=== PATIENT | male | born 1995 | race Caucasian/White ===

== ENCOUNTER 2025-03-05 23:23 | Emergency (ER) | payer BC, SELFPAY ==
[2025-03-05 23:23] VITALS: BP 155/88; PULSE 75; RESP 16; TEMP 36.6; O2SAT 97
--- OUTSIDE RECORDS SUMMARY | 2025-03-05 23:30 | XMS_ITS | Clinical Summary ---
Author Organization [facility] Address [address] [place] [address] Care Team Providers Care Wallpaper Cleaner Name Role Phone Shilpi Cool MD Unavailable [phone] Shilpi Cool MD Primary Care Provider [phone] Source Comments [facility],non-owned Affiliates and Associated Physician Practices is amultiple site organization consisting of ambulatory clinics and hospital sitesin [place], [place], [place] and [place]. This disclosure is being madepursuant to the Care Everywhere program and may not contain all information available regarding this patient. Last updated 18.[facility] [employer] Allergies No known active allergies Medications * Be aware that medications may not be up to date on this document. Alwaysverify current medications with the patient. 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 Immunizations Immunization Administration Dates Next Due DT (AGE 7-ADULT) 01/14/2004 DTaP VACCINE IM (6wk-6yrs) 07/10/1998,,1994,1993,1994 HEP A PEDS 2 DOSE 04/21/2007,05/20/2006 HEP B VACCINE, PED/ADOL 1994,1994, HIB BOOSTER 01/13/1995, 4,1994,1993 Human Papilloma Virus Cody valent Vaccine 12/04/2012 MENINGOCOCAL MENINGITIS 04/21/2007 MMR 07/10/1998,01/13/1995 POLIO OPV 07/10/1998, 4,1994,1993 TDAP (7yrs+) 05/20/2006 Family History Medical History Relation Name Comments Arthritis Maternal Grandfather Hypertension Maternal Grandfather Thyroid Disease Maternal Grandfather Allergies Maternal Grandmother Arthritis Maternal Grandmother Hypertension Maternal Grandmother Allergies Mother Arthritis Mother Hepatitis Mother Hypertension Mother Other Paternal Grandfather Hearing Loss Relation Name Status Comments Maternal Grandfather Maternal Grandmother Mother Paternal Grandfather Social History Tobacco Use Types Packs/Day Years Used Date Smoking Tobacco: Never Alcohol Use Standard Drinks/Week Comments Not Asked 0 (1 standard drink = 0.6 oz pur e alcohol) Sex and Gender Information Value Date Recorded Sex Assigned at Not on file Legal Sex Male 5:41 AM HYDROLOGIC MODELER Gender Identity Not on file Sexual Orientation Not on file Last Filed Vital Signs Vital Sign Reading Time Taken Comments Blood Pressure 122/60 12/04/2012 2:35 PM HYDROLOGIC MODELER Pulse 60 12/04/2012 2:35 PM HYDROLOGIC MODELER Temperature 37.1 C (98.8 F) 12/04/2012 2:35 PM HYDROLOGIC MODELER Respiratory Rate - - Oxygen Saturation - - Inhaled Oxygen Concentration - - Weight 81.8 kg (180 lb 6.4 oz) 12/04/2012 2:35 P M HYDROLOGIC MODELER Height 186.3 cm (6' 1.33 ) 12/04/2012 2:35 PM CS T Body Mass Index 23.59 12/04/2012 2:35 PM HYDROLOGIC MODELER Plan of Treatment Health Maintenance Due Date Last Done Comments HIV SCREENING 2009 HEPATITIS C SCREENING 12/28/2011 HPV VACCINE (2 - Male 3-dose series) 2013 12/04/2012 DTAP/TDAP/TD VACCINES (7 - Td or Tdap) 05/20/2016 05/20/2006, 01/14/2004, 07/10/1998, Additional history exists COVID-19 VACCINE (1 - season) 2024 DEPRESSION SCREENING 10/27/2024 INFLUENZA VACCINE (Season Ended) 2025 ZOSTER VACCINE (1 of 2) 01/02/2044 HEPATITIS B VACCINE Completed 1994, 1994, 1994 HIB VACCINE Completed 01/13/1995, 11/1993, 1994, Additional history exists MENINGOCOCCAL GROUPS A/C/Y/W VACCINE Aged Out 04/21/2007 No longer eligible based on patient's age to complete this topic MENINGOCOCCAL (Group B) VACCINE SHARED DECISION-MAKING Aged Out No longer eligible based on patient's age to complete this topic PNEUMOCOCCAL VACCINE Aged Out No long er eligible based on patient's age to complete this topic Insurance [place]ID - [place] [facility] [place] [id number] Care Teams Wallpaper Cleaner Relationship Specialty Start Date End Date Shilpi Cool MD PCP - Pediatrics 11/08/09 Shilpi Cool MD PCP - General 07/22/11
--- NOTE | 2025-03-05 23:38 | ED_ITS ---
HPI - Dental/Oral General Chief complaint: Dental/Oral Stated complaint: tooth pain Time Seen by Provider: 03/05/25 23:35 Source: patient and family Mode of arrival: ambulatory Limitations: no limitations History of Present Illness HPI Narrative: this is a 30-year-old male with a dental pain right lower molar area causing able to see his dentist at this time with no fever no nausea vomiting no shortness of breath pain rates his pain about an 8/10 right lower molar area with a submandibular gland swelling on the right. MD Complaint: tooth pain Teeth map: 2 1. toothache with surrounding gum inflammation Onset (ago): day(s) Duration: constant Severity: moderate Severity scale (1-10): 8 Relieving factors: nothing Exacerbating factors: chewing Context: history of dental caries and poor dental care Associated symptoms: gum swelling Related Data Allergies Allergy/AdvReac Type Severity Reaction Status Date / Time No Known Allergies Allergy Mild Verified 03/05/25 23:31 Review of Systems 2 Review of Systems: All systems reviewed & are unremarkable except as noted in HPI and below PMFSH Past Medical History Medical History Patient denies medical problems Exam 2 Const: General: healthy appearing Nutritional Appearance: well nourished Orientation/consciousness: patient oriented x3 Limitations: no limitations HENMT: Head: normal to inspection Eyes: Conjunctivae: conjunctivae normal Neck: Neck: normal visual inspection and lymphadenopathy Chest: Chest palpation & inspection: normal inspection of the chest Resp: Effort & Inspection: normal respiratory effort Auscultation: clear to auscultation bilaterally Cardio: Rate: regular rate Rhythm: regular rhythm GI: GI Palp: Yes Soft to palpation Auscultation: normal bowel sounds Course Course Emergency Course: patient received 60mg IM Toradol and a dose of p.o. Augmentin, advised patient to follow with his dentist and take medication as prescribed. Critical Care Time Critical Care Time Critical Care Time: No Discharge Plan Discharge Clinical Impression: Dental abscess, Toothache Patient Disposition: Home Condition: Stable Instructions: Antibiotic Form, Dental Abscess (ED), Toothache (ED) Additional Instructions: Advised to take medication as prescribed and to follow with Primary/dentist for further evaluation and treatment. Patient Language: Thai Prescriptions: New tramadol 50 mg tablet 50 mg PO Q6H PRN (Reason: pain) Qty: 20 0RF amoxicillin-pot clavulanate [Augmentin] 500-125 mg tablet 1 tablet PO TID Qty: 30 0RF Follow-up/Referrals: Soledad,Maria T Hightower APRN [Primary Care Provider] - Stand Alone Forms: Work/School Release IP Time of Disposition: 23:42
[2025-03-05] MEDS: AMOXICILLIN/CLAVULANATE K 875-125 MG TAB 1 TABLET PO (23:46)
[2025-03-05] MEDS: KETOROLAC (*BKC) 60 MG/2 ML VIAL IM (23:46)
== END 2025-03-06 00:27 | disposition home or self-care (01) ==
LOC: CHSED 23:46
PROVIDERS: Emergency Provider Emergency Medicine; PCP Nurse Practitioner Family
DX: K04.7 Periapical abscess without sinus (principal)
CPT/HCPCS: 96372; 99283; A9270; J1885

== ENCOUNTER 2025-06-01 20:28 | Emergency (ER) | payer BC, SELFPAY ==
[2025-06-01 20:28] VITALS: BP 146/85; PULSE 55; RESP 16; TEMP 36.5; O2SAT 98
--- NOTE | 2025-06-01 20:34 | ED_ITS ---
HPI - Headache General Chief Complaint: Headache Stated Complaint: migraine Time Seen by Provider: 06/01/25 20:34 Source: patient Mode of arrival: ambulatory Limitations: no limitations History of Present Illness HPI Narrative: 30-year-old male with a history of migraines presents to the ED with a 3 day history of -- left suboccipital headache which radiates to bilateral temples. This is similar to his usual migraines. -- Patient has photophobia. No fever. No focal neuro deficits. No nausea /vomiting. MD elicited complaint: headache Onset (ago): day(s) ( Three days) Onset description: gradually Location: left, occipital and down into neck Severity: moderate Quality & Timing: throbbing Exacerbating factors: none Relieving factors: nothing Context: occurred at rest Associated symptoms: none and photophobia Treatments prior to arrival: acetaminophen Related Data Home Medications ?Medication ?Instructions ?Recorded ?Confirmed ?Last Taken ?Type No Home Medications 06/01/25 06/01/25 Unknown History Allergies Allergy/AdvReac Type Severity Reaction Status Date / Time No Known Allergies Allergy Mild Verified 06/01/25 20:43 Review of Systems Review of Systems: All systems reviewed & are unremarkable except as noted in HPI and below Constitutional: Constitutional: Reports as per HPI and Reports no additional constitutional complaints Eyes: Eyes: Reports as per HPI and Reports no additional eye complaints ENT: Reports system reviewed and no additional complaints, except as documented and Reports as per HPI Cardiovascular: Cardiovascular: Reports as per HPI and Reports no additional cardiovascular complaints Respiratory: Respiratory: Reports as per HPI and Reports no additional respiratory complaints Gastrointestinal: Gastrointestinal: Reports as per HPI and Reports no additional gastrointestinal complaints Genitourinary: Genitourinary: Reports no additional male genitourinary complaints and Reports as per HPI Musculoskeletal: Musculoskeletal: Reports no additional musculoskeletal complaints and Reports as per HPI Integumentary/Breasts: Skin/Breast: Reports system reviewed and no additional complaints, except as docu and Reports as per HPI Neurologic: Reports system reviewed and no additional complaints, except as documented and Reports headache(s) Psychiatric: Psychiatric: Reports no additional psychiatric complaints and Reports as per HPI Endocrine: Endocrine: Reports no additional endocrine complaints and Reports as per HPI Hematologic/Lymphatic: Hematologic/Lymphatic: Reports no additional hematologic/lymphatic complaints and Reports as per HPI Allergic/Immunologic: Allergic/Immunologic: Reports no additional allergic/immunologic complaints and Reports as per HPI PMF Past Medical History Medical History Migraine Patient denies medical problems Exam Narrative: vitals are stable. Const: General: no acute distress Orientation/consciousness: patient oriented x3 Limitations: no limitations HENMT: Head: normal to inspection Ears: external ears normal Face/Nose/Sinus: Normal external nose present Face and sinus: normal facial exam Mouth: Yes Normal oral and palatal mucosa present Throat: posterior oropharynx normal Eyes: Conjunctivae: conjunctivae normal Pupils: Equal, round and reactive pupils present EOM: EOMs intact bilaterally Direct Ophthalmoscopy: no photophobia Neck: Neck: normal visual inspection, no lymphadenopathy and no meningeal signs Chest: Chest palpation & inspection: normal inspection of the chest Resp: Effort & Inspection: normal respiratory effort Auscultation: clear to auscultation bilaterally Cardio: Rate: regular rate Rhythm: regular rhythm GI: GI Palp: Yes Soft to palpation Auscultation: normal bowel sounds Other: Tenderness/ rigidity / rebound. : General: Yes no CVA tenderness Back/Spine/Pelvis: Back: no CVA tenderness Skin: General skin exam: normal color Rashes: no rashes Wounds: no wounds Neuro: General: patient oriented x3, moves all extremities, no meningeal signs, no focal motor deficits and CN's II-XI intact bilaterally Cranial nerves: Yes Nystagmus not present Speech: normal speech Gait exam (Neuro): Normal gait present Extrem: General: normal to inspection and no clubbing, cyanosis or edema Psych: Mental Status: mental status grossly normal Affect: normal affect Attitude: cooperative Course Course Emergency Course: Migraine headache-- Patient presents with unilateral headache with photophobia. No vomiting. No focal neuro deficit. Will try sumatriptan. no relief sumatriptan. It made him nauseous. Gave patient 30 of Toradol 10 of Compazine. Headache has decreased to 5/10. He is no longer nauseous. Vital Signs Vital signs: Vital Signs Temperature 36.5 C 06/01/25 20:28 Pulse Rate 55 L 06/01/25 20:28 Respiratory Rate 16 06/01/25 20:28 Blood Pressure 146/85 H 06/01/25 20:28 Pulse Oximetry 98 06/01/25 20:28 Oxygen Delivery Room Air 06/01/25 20:28 Temperature 36.5 C 06/01/25 20:28 Pulse Rate 55 L 06/01/25 20:28 Respiratory Rate 16 06/01/25 20:28 Blood Pressure 146/85 H 06/01/25 20:28 Pulse Oximetry 98 06/01/25 20:28 Oxygen Delivery Room Air 06/01/25 20:28 MDM - Headache MDM Narrative Medical decision making narrative: Migraine Differential Diagnosis Differential diagnosis: Likely tension headache Discharge Plan Discharge Clinical Impression: Migraine Patient Disposition: Home Condition: Stable Instructions: Antibiotic Form, Migraine Headache (ED) Patient Language: [place] Citizen Prescriptions: No Action No Home Medications Follow-up/Referrals: UNKNOWN,DOCTOR [Non-Staff] - Time of Disposition: 22:01
--- OUTSIDE RECORDS SUMMARY | 2025-06-01 20:34 | XMS_ITS | Clinical Summary ---
Author Organization [facility] Address [address] [place] [address] Care Team Providers Care Cocktail Server Name Role Phone Shilpi Cool MD Unavailable [phone] Shilpi Cool MD Primary Care Provider Source Comments [facility],non-owned Affiliates and Associated Physician Practices is amultiple site organization consisting of ambulatory clinics and hospital sitesin [place], [place], [place] and [place]. This disclosure is being madepursuant to the Care Everywhere program and may not contain all information available regarding this patient. Last updated 18.[facility] [employer] Allergies No known active allergies Medications * [...] on file Legal Sex Male 5:41 AM LEVELMAN Gender Identity Not on file Sexual Orientation Not on file Last Filed Vital Signs Vital Sign Reading Time Taken Comments Blood Pressure 122/60 12/04/2012 2:35 PM LEVELMAN Pulse 60 12/04/2012 2:35 PM LEVELMAN Temperature 37.1 C (98.8 F) 12/04/2012 2:35 PM LEVELMAN Respiratory Rate - - Oxygen Saturation - - Inhaled Oxygen Concentration - - Weight 81.8 kg (180 lb 6.4 oz) 12/04/2012 2:35 P M LEVELMAN Height 186.3 cm (6' 1.33) 12/04/2012 2:35 PM CS T Body Mass Index 23.59 12/04/2012 2:35 PM LEVELMAN Plan of Treatment Health Maintenance Due Date Last Done Comments HIV SCREENING 2009 HEPATITIS C SCREENING 12/28/2011 HPV VACCINE (2 - Male 3-dose series) 2013 12/04/2012 DTAP/TDAP/TD VACCINES (7 - Td or Tdap) 05/20/2016 05/20/2006, 01/14/2004, 07/10/1998, Additional history exists COVID-19 VACCINE (1 - season) 2024 DEPRESSION SCREENING 10/27/2024 INFLUENZA VACCINE (#1) 2025 ZOSTER VACCINE (1 of 2) 01/02/2044 [...] complete this topic Insurance MEDICAID - [place] [facility] [place] [address] [id number] Care Teams Cocktail Server Relationship Specialty Start Date End Date Shilpi Cool MD PCP - Pediatrics 11/08/09 Shilpi Cool MD PCP - General 07/22/11
--- OUTSIDE RECORDS SUMMARY | 2025-06-01 21:09 | XMS_ITS | Encounter Summary ---
Author Organization [facility] Address [address] [place] [address] Care Team Providers Care Audio Visual Technician Name Role Phone None, Provider Primary Care Provider Faye Norris [facility] Primary Care Provider [phone] Encounter Details Date Type Department Care Team (Late st Contact Info) Description 01/10/2018 Abstract [facility] CONVERSION [address] [place] [address] , Generic Conversion, Social History Tobacco Use Types Packs/Day Years Used Date Smoking Tobacco: Never Assessed Sex and Gender Information Value Date Recorded Sex Assigned at Male 12/06/2024 6:01 PM COMMUNITY RECREATION PROGRAMMER Legal Sex Male 7:32 PM CDT Gender Identity Not on file Sexual Orientation Not on file documented as of this encounter Plan of Treatment Not on file documented as of this encounter Visit Diagnoses Not on filedocumented in this encounter Additional Health Concerns Infection Onset Date Last Indicated Resolved Time MRSA 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
--- OUTSIDE RECORDS SUMMARY | 2025-06-01 21:09 | XMS_ITS | Clinical Summary ---
Author Organization [facility] Address [address] [place] [address] Care Team Providers Care Beading Sawyer Name Role Phone Faye Slade [facility] Primary Care Provider [phone] Allergies No known active allergies Medications DULoxetine (CYMBALTA) 30 MG capsule Take 3 capsules (90 mg total) by mouth daily. Active prazosin (MINIPRESS) 2 MG capsule Take 1 capsule (2 mg total) by mouth 3 (three) times daily. Active Active Problems No known active problems Immunizations Immunization Administration Dates Next Due Tdap (Boostrix) 06/06/2021 Social History Tobacco Use Types Packs/Day Years Used Date Smoking Tobacco: Never Smokeless Tobacco: Never Alcohol Use Standard Drinks/Week Comments Not Currently 0 (1 standard drink = 0.6 oz pur e alcohol) Sex and Gender Information Value Date Recorded Sex Assigned at Male 12/06/2024 6:01 PM VEGETABLE COOK Legal Sex Male 7:32 PM CDT Gender Identity Not on file Sexual Orientation Not on file Last Filed Vital Signs Vital Sign Reading Time Taken Comments Blood Pressure 151/77 12/06/2024 5:52 PM VEGETABLE COOK Pulse 72 12/06/2024 5:52 PM VEGETABLE COOK Temperature 36.2 C (97.2 F) 12/06/2024 5:52 PM VEGETABLE COOK Respiratory Rate 22 12/06/2024 5:52 PM VEGETABLE COOK Oxygen Saturation 98% 12/06/2024 5:52 PM VEGETABLE COOK Inhaled Oxygen Concentration - - Weight 104.3 kg (230 lb) 12/06/2024 5:52 PM VEGETABLE COOK Height 195.6 cm (6' 5) 12/06/2024 5:52 PM VEGETABLE COOK Body Mass Index 27.27 12/06/2024 5:52 PM VEGETABLE COOK Plan of Treatment Health Maintenance Due Date Last Done Comments Annual Physical 1997 Hepatitis C 01/02/2012 HPV Vaccines (2 - Male 3-dose series) 2013 12/04/2012 COVID-19 Vaccine ( - 2023- season) 2024 DTaP, Tdap and Td Vaccines (8 - Td or Tdap) 06/06/2031 06/06/2021, 05/20/2006, 07/10/1998, Additional history exists Hepatitis B Vaccines Completed 1994, 1994, 1994 Meningococcal Vaccine Aged Out 04/21/2007 No elvis javon eligible based on patient's age to complete this topic Meningococcal B Vaccine Aged Out No l onger eligible based on patient's age to complete this topic Pneumococcal Vaccine: Pediatrics (0 to 5 Years) and At-Risk Patients (6 to 49 Years) Aged Out No longer eligible based on patient's age to complete this topic RSV Immunizations Under 20 Months Aged Out No longer eligible based on patient's age to complete this topic Additional Health Concerns Infection Onset Date Last Indicated MRSA 09/19/2017 09/19/[address] [place] [address] [place] [address] Care Teams Beading Sawyer Relationship Specialty Start Date End Date Faye Slade FNP-BC [address] [place] [address] PCP - General NURSE PRACTITIONER 11/12/20
--- OUTSIDE RECORDS SUMMARY | 2025-06-01 21:09 | XMS_ITS | Encounter Summary ---
Author Organization [facility] Address [facility] [place] [address] Care Team Providers Care Package Checker Name Role Phone None, Provider Primary Care Provider Faye Norris [facility] Primary Care Provider [phone] Encounter Details Date Type Department Care Team (Late st Contact Info) Description 04/03/2019 Abstract [facility] CONVERSION [address] [place] [address] , Generic Conversion, Social History Tobacco Use Types Packs/Day Years Used Date Smoking Tobacco: Never Assessed Sex and Gender Information Value Date Recorded Sex Assigned at Male 12/06/2024 6:01 PM HANDSTITCHING MACHINE COLLAR FELLER Legal Sex Male 7:32 PM CDT Gender Identity Not on file Sexual Orientation Not on file documented as of this encounter Plan of Treatment Not on file documented as of this encounter Visit Diagnoses Not on filedocumented in this encounter Additional Health Concerns Infection Onset Date Last Indicated Resolved Time MRSA 09/19/2017 09/19/2017 documented as of this encounter Care Teams Package Checker Relationship Specialty Start Date End Date None, Provider, PCP - General 08/02/20 11/11/20 Faye Slade FNP-BC [address] [place] [address] PCP - General NURSE PRACTITIONER 11/12/20 documented as of this encounter
--- OUTSIDE RECORDS SUMMARY | 2025-06-01 21:09 | XMS_ITS | Clinical Summary ---
Author Organization [facility] Address [address] [place] [address] Care Team Providers Care Marketing Communications Specialist Name Role Phone Shilpi Cool MD Unavailable [phone] Shilpi Cool MD Primary Care Provider [phone] Source Comments [facility],non-owned Affiliates and Associated Physician Practices is amultiple site organization consisting of ambulatory clinics and hospital sitesin [place], [place], [place] and [place]. This disclosure is being madepursuant to the Care Everywhere program and may not contain all information available regarding this patient. Last updated 18.[facility] [place] Allergies No known active allergies Medications * [...] on file Legal Sex Male 5:41 AM SURG NURSE Gender Identity Not on file Sexual Orientation Not on file Last Filed Vital Signs Vital Sign Reading Time Taken Comments Blood Pressure 122/60 12/04/2012 2:35 PM SURG NURSE Pulse 60 12/04/2012 2:35 PM SURG NURSE Temperature 37.1 C (98.8 F) 12/04/2012 2:35 PM SURG NURSE Respiratory Rate - - Oxygen Saturation - - Inhaled Oxygen Concentration - - Weight 81.8 kg (180 lb 6.4 oz) 12/04/2012 2:35 P M SURG NURSE Height 186.3 cm (6' 1.33) 12/04/2012 2:35 PM CS T Body Mass Index 23.59 12/04/2012 2:35 PM SURG NURSE Plan of Treatment Health Maintenance Due Date [...] complete this topic Insurance MEDICAID - [place] [facility] Address: [address] [place] [address] [employer] [address] [id number] Care Teams Marketing Communications Specialist Relationship Specialty Start Date End Date Shilpi Cool MD PCP - Pediatrics 11/08/09 Shilpi Cool MD PCP - General 07/22/11
[2025-06-01] MEDS: KETOROLAC 30 MG/ML VIAL (*BKC) IM (21:31)
[2025-06-01] MEDS: PROCHLORPERAZINE EDISYLATE 10 MG/2 ML VIAL IM (21:33)
--- NOTE | 2025-06-01 21:37 | PC.NURSE ---
pt called out, stated he was feeling worse after initial subcutaneous injection. +nausea. ERP aware and new orders obtained. Resting on stretcher on his abdomen/right side, reports feeling hot now and no change in his pain. pt medicated per new orders, see MAR. significant other at bedside.
--- NOTE | 2025-06-01 22:05 | PC.NURSE ---
pt checked. reports no acute nausea now and improved pain he rates as 5/10. ERP updated. sig other at pt bedside. RN monitoring.
--- NOTE | 2025-06-01 22:39 | PC.NURSE ---
pt called to nurses station. reports improved pain as he was able to fall asleep and states he is ready to leave. sig other at bedside and vitals obtained.
[2025-06-01 22:40] VITALS: BP 123/70; PULSE 63; RESP 18; O2SAT 98
[2025-06-01 22:44] VITALS: TEMP 36.2
== END 2025-06-01 22:44 | disposition home or self-care (01) ==
PROVIDERS: Emergency Provider Internal Medicine Critical Care Medicine; PCP Nurse Practitioner Family
DX: G43.909 Migraine, unspecified, not intractable, without status migrainosus (principal)
CPT/HCPCS: 96372; 99284; J0780; J1885; J3030

== ENCOUNTER 2025-06-18 18:48 | Emergency (ER) | payer BC, SELFPAY ==
--- NOTE | ~2025-06-18 | CT_ITS ---
EXAMINATION: CT cervical spine wo con DATE: 06/18/2025 19:39 INDICATION: Head injury. Neck pain. TECHNIQUE: Computed tomography (CT) of the cervical spine was performed without intravenous contrast. The dose-length product was 396 mGy-cm. COMPARISON: No prior studies for comparison. FINDINGS: Vertebral body heights are maintained. Craniovertebral junction is normal. Odontoid process is normal. No significant disc narrowing. No evidence for perched facet. Spinous processes are normal. There is mild uncinate degenerative change at C6-7. No significant paraspinal soft tissue abnormality. IMPRESSION: 1. No acute abnormality of the cervical spine. Reviewed, dictated and finalized at location O.
--- NOTE | ~2025-06-18 | XR_ITS ---
XR shoulder LT min 2V 06/18/2025 19:29 INDICATION: Left shoulder pain after fall PROCEDURE: 3 views left shoulder COMPARISON: No prior studies for comparison. FINDINGS: Fracture, dislocation or subluxation is not identified. The soft tissues appear within normal limits. No foreign bodies are identified. IMPRESSION: 1: NO ACUTE BONE OR JOINT ABNORMALITY IDENTIFIED. Reviewed, dictated and finalized at location O.
--- NOTE | ~2025-06-18 | CT_ITS ---
EXAMINATION: CT BRAIN W/O DATE: 06/18/2025 19:39 INDICATION: Head injury TECHNIQUE: Computed tomography (CT) of the head was performed without intravenous contrast. The dose-length product was 681.00 mGy-cm. Automated exposure control and iterative reconstruction technique were employed. COMPARISON: CT dated 05/21/2010 FINDINGS: Normal brain parenchymal volume for age. Normal leary-white differentiation. No acute intracranial hemorrhage, infarction, mass or mass effect. No ventriculomegaly or midline shift. Midline sagittal images demonstrate a normal corpus callosum, craniovertebral junction and sella turcica. Basilar cisterns are patent. Paranasal sinuses and mastoids are pneumatized. No depressed skull fractures. IMPRESSION: 1. No acute intracranial abnormality. Reviewed, dictated and finalized at location O.
[2025-06-18 18:56] VITALS: BP 123/91; PULSE 65; RESP 20; TEMP 36.6; O2SAT 98
--- NOTE | 2025-06-18 19:29 | ED_ITS ---
HPI - General Adult General Chief complaint: Unspecified Stated complaint: head, neck, shoulder pain Time Seen by Provider: 06/18/25 19:09 History of Present Illness HPI narrative: Patient is a 30-year-old male who presents emergency department this evening status post head injury. Patient states that he was playing softball and was running trying to catch a softball when he ran into a wall. Patient believes that he may have lost consciousness for a short period time. Is complaining of neck pain. Patient is also complaining of left shoulder pain. He is currently alert and oriented to person, place, time and situation and answering all my questions appropriately. Patient was ambulatory at the scene. No additional symptoms or concerns at this time. Related Data Home Medications ?Medication ?Instructions ?Recorded ?Confirmed ?Last Taken ?Type No Home Medications 06/01/25 06/01/25 U nknown History Allergies Allergy/AdvReac Type Severity Reaction Status Date / Time No Known Allergies Allergy Mild Verified 06/01/25 20:43 Review of Systems Review of Systems: All systems are reviewed and are negative unless stated otherwise in the HPI. FOR[facility], LAT[facility] Past Medical History Medical History Migraine Patient denies medical problems Exam Narrative: General: Alert, awake, afebrile, in no acute distress. HEENT: PERRL, no rhinorrhea, no post nasal drip, oropharynx clear. Neck: Trachea midline, no JVD, no lymphadenopathy, C-collar in place, tenderness to palpation over the paraspinal cervical region. Cardiovascular: Regular rate and rhythm, no murmurs, rubs or gallops, no peripheral edema. Respiratory: Clear to auscultation bilaterally, no tachypnea, no wheezing, no rhonchi, no rubs, no respiratory distress. Abdomen: Soft, nontender, nondistended, no rebound, no guarding, no peritoneal signs. Musculoskeletal: No joint swelling or deformity noted specifically to the left shoulder joint, bruising noted to the anterior aspect of the left shoulder joint, small abrasion to right knee with intact full range of motion at the right knee joint, normal muscle tone. Skin: No rashes or petechia, no signs of infection. Psychiatric: Alert and oriented, normal behavior and judgment for situation. Neurological: Alert and oriented to person, place, and time. Follows all commands. No focal deficits, speech is clear and fluent. Course Vital Signs Vital signs: Vital Signs Temperature 97.9 F 06/18/25 18:56 Pulse Rate 65 06/18/25 18:56 Respiratory Rate 20 06/18/25 18:56 Blood Pressure 123/91 H 06/18/25 18:56 Pulse Oximetry 98 06/18/25 18:56 Oxygen Delivery Room Air 06/18/25 18:56 Temperature 97.9 F 06/18/25 18:56 Pulse Rate 65 06/18/25 18:56 Respiratory Rate 20 06/18/25 18:56 Blood Pressure 123/91 H 06/18/25 18:56 Pulse Oximetry 98 06/18/25 18:56 Oxygen Delivery Room Air 06/18/25 18:56 Medical Decision Making MDM Narrative Medical decision making narrative: The patient was evaluated by myself in the emergency department. History is obtained from patient who is an independent historian and physical exam was performed. External medical records were reviewed at this time. Patient was administered an oral [place] 5-325 mg at this time for pain. Imaging studies obtained included CT head and C-spine without IV contrast, left shoulder x-ray which was independently interpreted by me revealing no acute process, which is pending final radiology interpretation. Differential diagnosis considerations include fractures, dislocations, intracranial hemorrhage, musculoskeletal strain. Comorbidities impacting this visit include none. I have evaluated and discussed social determinants of health with the patient that could potentially impact subsequent diagnosis and treatment plans. On repeat assessment of the patient, reevaluation revealed that the patient is doing well and is in no acute distress. Patient symptoms have improved since he arrived to our emergency department. Repeat vital signs were all reviewed and noted to be stable. Differential diagnosis and treatment plan were discussed with the patient at bedside. Patient agrees with discussion and after shared medical decision making agrees with discharge. All questions were answered to the patient's satisfaction. Patient will follow up with PCP in 3-5 days. Was also provided with an orthopedic referral instructed to call to set up a follow-up appointment if he continues to have left shoulder pain as he may need additional workup including MRI for evaluation of rotator cuff injury. Patient was provided with strict return precautions and instructed to return to the emergency department if any new or worsening symptoms develop. The patient was discharged in stable condition. Vital Signs Vital Signs: Vital Signs Temperature 97.9 F 06/18/25 18:56 Pulse Rate 65 06/18/25 18:56 Respiratory Rate 20 06/18/25 18:56 Blood Pressure 123/91 H 06/18/25 18:56 Pulse Oximetry 98 06/18/25 18:56 Oxygen Delivery Room Air 06/18/25 18:56 Temperature 97.9 F 06/18/25 18:56 Pulse Rate 65 06/18/25 18:56 Respiratory Rate 20 06/18/25 18:56 Blood Pressure 123/91 H 06/18/25 18:56 Pulse Oximetry 98 06/18/25 18:56 Oxygen Delivery Room Air 06/18/25 18:56 Discharge Plan Discharge Clinical Impression: Fall, Head injury, Sprain of left shoulder Patient Disposition: Home Condition: Improved Instructions: Antibiotic Form, Head Injury (DC), Shoulder Sprain (ED) Additional Instructions: Please follow-up with your family doctor within the next 3-5 days. Return to ED if any new or worsening symptoms develop. You also provided an orthopedic referral instructed to call to set up follow-up appointment if you continue to have shoulder pain as you may need an MRI for further evaluation of any rotator cuff injury. Patient Language: Cam[place]onian Prescriptions: No Action No Home Medications Follow-up/Referrals: PHYSICIAN,CHIEF NURSE EXECUTIVE [Primary Care Provider, Internal Medicine] Jose Velez MD [Physician, Orthopedics] - 1 Week Time of Disposition: 19:58
[2025-06-18] MEDS: HYDROcodone/acetaminophen (*CRX) 5-325 MG TABLET 1 TAB PO (19:53)
[2025-06-18 20:09] VITALS: BP 135/74; PULSE 83; RESP 18; TEMP 36.6; O2SAT 99
== END 2025-06-18 20:11 | disposition home or self-care (01) ==
PROVIDERS: Emergency Provider Emergency Medicine
DX: S09.90XA Unspecified injury of head, initial encounter (principal); S43.402A Unspecified sprain of left shoulder joint, initial encounter; W22.01XA Walked into wall, initial encounter; Y93.64 Activity, baseball
CPT/HCPCS: 70450; 72125; 73030; 99284; A4565; A9270; L0140